=== PATIENT | male | born 1945 | race Hispanic/Latino ===

== ENCOUNTER 2020-12-03 09:55 | Inpatient (IN) | payer MEDICARE ==
[2020-12-03 14:17] LABS: ALT (SGPT) 10 U/L (8-55); AST (SGOT) 14 U/L (5-34); Albumin 4.1 g/dL (3.4-4.8); Alkaline Phosphatase 59 U/L (40-110); Anion Gap 14 mmol/L (10-20); BUN (Urea Nitrogen) 60 mg/dL (8.4-25.7); Bilirubin, Total 0.3 mg/dL (0.2-1.2); Calc. Creatinine Clearance 0 mL/min (70-130); Calcium 9.2 mg/dL (7.8-10.44); Carbon Dioxide 24 mmol/L (23-31); Chloride 106 mmol/L (98-107); Globulin 3.4 g/dL (2.4-3.5); Glucose 139 mg/dL (83-110); Potassium 4.3 mmol/L (3.5-5.1); Protein, Total 7.5 g/dL (5.8-8.1); Sodium 140 mmol/L (136-145)
[2020-12-03 15:34] LABS: Hemoglobin 10.1 g/dL (14.0-18.0); Mean Corpuscular Volume 93.6 fL (78.0-98.0); Red Blood Cell (RBC) Count 3.15 mill/uL (4.70-6.10); White Blood Cell (WBC) Count 6.2 thou/uL (4.8-10.8)
[2020-12-03 15:35] LABS: #Basophils 0.1 thou/uL (0.0-0.2); #Eosinphils 0.5 thou/uL (0.0-0.7); #Lymphocytes 1.8 thou/uL (1.20-3.40); #Monocytes 0.5 thou/uL (0.11-0.59); #Neutrophils 3.4 thou/uL (1.40-6.50); %Basophils 1.2 % (0.0-1.0); %Lymphocytes 28.6 % (21.0-51.0); %Monocytes 7.4 % (0.0-10.0); %Neutrophils 54.9 % (42.0-75.0); Mean Corpuscular HGB CONC 34.2 g/dL (32.0-36.0); Mean Platelet Volume 8.1 fL (7.4-10.4); Platelet Count 167 thou/uL (130-400); RBC Distribution Width 11.4 % (11.5-14.5)
[2020-12-03] MEDS ORDERED: CEFAZOLIN 2 GM in Premix Bag 1 BAG IVPB SCH (16:15)
[2020-12-03] MEDS ORDERED: Acetaminophen 325 MG TAB PO PRN (18:51)
[2020-12-03 18:53] LABS: #Basophils 0.1 thou/uL (0.0-0.2); #Eosinphils 0.5 thou/uL (0.0-0.7); #Lymphocytes 1.5 thou/uL (1.20-3.40); #Monocytes 0.4 thou/uL (0.11-0.59); #Neutrophils 3.1 thou/uL (1.40-6.50); %Basophils 1.3 % (0.0-1.0); %Eosinophils 9.5 % (0.0-10.0); %Lymphocytes 26.5 % (21.0-51.0); %Monocytes 7.1 % (0.0-10.0); %Neutrophils 55.7 % (42.0-75.0); Hemoglobin 10.3 g/dL (14.0-18.0); Mean Corpuscular HGB CONC 33.7 g/dL (32.0-36.0); Mean Corpuscular Hemoglobin 31.4 pg (27.0-31.0); Mean Corpuscular Volume 93.3 fL (78.0-98.0); Mean Platelet Volume 8.2 fL (7.4-10.4); Platelet Count 162 thou/uL (130-400); RBC Distribution Width 11.5 % (11.5-14.5); Red Blood Cell (RBC) Count 3.27 mill/uL (4.70-6.10); White Blood Cell (WBC) Count 5.6 thou/uL (4.8-10.8)
[2020-12-03] MEDS ORDERED: Dextrose 50% Abboject 50 ML SYRINGE IVP PRN (19:00)
[2020-12-03] MEDS ORDERED: Dextrose 5% in Water 1,000 ML IV PRN (19:00)
[2020-12-03 19:07] LABS: Hemoglobin A1c 6.1 % (4.0-6.0)
[2020-12-03 19:09] LABS: ALT (SGPT) 9 U/L (8-55); AST (SGOT) 14 U/L (5-34); Albumin 4.1 g/dL (3.4-4.8); Alkaline Phosphatase 52 U/L (40-110); Anion Gap 18 mmol/L (10-20); BUN (Urea Nitrogen) 57 mg/dL (8.4-25.7); Bilirubin, Total 0.4 mg/dL (0.2-1.2); Calc. Creatinine Clearance 0 mL/min (70-130); Carbon Dioxide 22 mmol/L (23-31); Chloride 105 mmol/L (98-107); Globulin 3.5 g/dL (2.4-3.5); Glucose 229 mg/dL (83-110); Potassium 4.5 mmol/L (3.5-5.1); Protein, Total 7.6 g/dL (5.8-8.1); Sodium 140 mmol/L (136-145)
[2020-12-03] MEDS ORDERED: Tuberculin PPD 0.1 ML VIAL I-DERMAL SCH ×2 (19:15→21:00)
[2020-12-03 19:17] VITALS: BMI 26.4
[2020-12-03 19:48] LABS: SARS-CoV-2 NAA Rapid Test Not Detected (NotDetected)
[2020-12-04] MEDS ORDERED: Carvedilol 25 MG TAB PO SCH ×2 (06:30→09:00)
[2020-12-04 07:07] LABS: HBSAB Concentration Less than 8.00 mIU/mL; HBSAg Index 0.21 S/CO (0-0.99); Hep B Core Total Ab Non-Reactive (NonReactive); Hep B Core Total Index 0.11 S/CO (0-0.79); Hep B Surf AB Non-Reactive (NonReactive); Hep B Surf Ag Non-Reactive S/CO (NonReactive); Hep C IgG Ab Non-Reactive (NonReactive); Hep C Index 0.08 S/CO (0-0.79)
[2020-12-04] MEDS: Polyethylene Glycol 3350 17 GM Packet PO SCH (07:54)
[2020-12-04] MEDS: Aspirin 325 MG TAB PO SCH (07:54)
[2020-12-04] MEDS ORDERED: Heparin 5,000 UNITS/ML VIAL ONE (08:31)
[2020-12-04] MEDS ORDERED: Protamine Sulfate 50 MG/5 ML VIAL ONE (08:31)
[2020-12-04] MEDS ORDERED: Sodium Chloride 0.9% 30 ML ONE (08:31)
[2020-12-04] MEDS ORDERED: Heparin 10,000 UNITS/ 10 ML VIAL ONE ×2 (08:31→10:18)
[2020-12-04] MEDS ORDERED: Bupivacaine 0.25% HCL 30 ML VIAL ONE (08:31)
[2020-12-04] MEDS ORDERED: Lidocaine 1% w/Epinephrine 1:100K 20 ML VIAL ONE (08:31)
[2020-12-04] MEDS ORDERED: Ketamine 50 MG/ML (10ML VIAL) ONE (09:14)
[2020-12-04] MEDS ORDERED: Bupivacaine HCl 0.5%/Epinephrine 1:200,000/PF 30 ml Vial ONE (09:19)
[2020-12-04] MEDS ORDERED: PROPOFOL 200 MG/20 ML VIAL ONE (09:24)
[2020-12-04] MEDS: traMADol HCl 50 MG TAB PO PRN (14:53)
[2020-12-04] MEDS: Carvedilol 25 MG TAB PO SCH (20:16)
[2020-12-05 05:55] LABS: Anion Gap 14 mmol/L (10-20); BUN (Urea Nitrogen) 41 mg/dL (8.4-25.7); Calc. Creatinine Clearance 21 mL/min (70-130); Calcium 8.5 mg/dL (7.8-10.44); Carbon Dioxide 28 mmol/L (23-31); Chloride 101 mmol/L (98-107); Glucose 145 mg/dL (83-110); Sodium 139 mmol/L (136-145)
[2020-12-05] MEDS ORDERED: READ PPD TEST SITE PO SCH (09:00)
[2020-12-05] MEDS ORDERED: Ondansetron ODT 4 MG TAB PO PRN (09:02)
[2020-12-05] MEDS ORDERED: Ondansetron PF 4 MG/2 ML Vial IVP PRN (09:02)
[2020-12-05] MEDS: Polyethylene Glycol 3350 17 GM Packet PO SCH (12:42)
[2020-12-05] MEDS: Aspirin 325 MG TAB PO SCH (12:42)
[2020-12-05] MEDS: Carvedilol 25 MG TAB PO SCH ×2 (12:42→21:03)
[2020-12-05] MEDS ORDERED: Heparin 10,000 UNITS/ 10 ML VIAL ONE (14:52)
[2020-12-05] MEDS ORDERED: Promethazine HCl 12.5 MG in Sodium Chloride 0.9% 50 ML IVPB PRN (16:46)
[2020-12-05] MEDS: HumaLOG 300 UNITS/3 ML VIAL SC PRN (18:38)
[2020-12-05] MEDS: hydrALAZINE 25 MG TAB PO SCH (21:00)
[2020-12-05] MEDS: Mirtazapine 15 MG TAB PO SCH (21:00)
[2020-12-05] MEDS: Fluticasone Propionate Nasal Spray 16 gm Bottle NASAL SCH (21:02)
[2020-12-05] MEDS: Lantus 1000 UNITS/10 ML VIAL SC SCH (21:04)
[2020-12-06] MEDS: traMADol HCl 50 MG TAB PO PRN (00:23)
[2020-12-06 05:01] LABS: Anion Gap 11 mmol/L (10-20); BUN (Urea Nitrogen) 29 mg/dL (8.4-25.7); Calc. Creatinine Clearance 20 mL/min (70-130); Calcium 8.3 mg/dL (7.8-10.44); Carbon Dioxide 30 mmol/L (23-31); Chloride 100 mmol/L (98-107); Glucose 120 mg/dL (83-110); Potassium 3.8 mmol/L (3.5-5.1); Sodium 137 mmol/L (136-145)
[2020-12-06] MEDS: Amlodipine 10 MG TAB PO SCH (08:36)
[2020-12-06] MEDS: Polyethylene Glycol 3350 17 GM Packet PO SCH (08:36)
[2020-12-06] MEDS: Carvedilol 25 MG TAB PO SCH ×2 (08:36→20:30)
[2020-12-06] MEDS: Fluticasone Propionate Nasal Spray 16 gm Bottle NASAL SCH ×2 (08:37→20:28)
[2020-12-06] MEDS: hydrALAZINE 25 MG TAB PO SCH ×3 (08:37→20:30)
[2020-12-06] MEDS: Aspirin 325 MG TAB PO SCH (08:37)
[2020-12-06] MEDS: Lantus 1000 UNITS/10 ML VIAL SC SCH (20:29)
[2020-12-06] MEDS: Mirtazapine 15 MG TAB PO SCH (20:30)
[2020-12-07 06:33] LABS: Anion Gap 13 mmol/L (10-20); Calc. Creatinine Clearance 17 mL/min (70-130); Calcium 8.2 mg/dL (7.8-10.44); Carbon Dioxide 29 mmol/L (23-31); Chloride 101 mmol/L (98-107); Glucose 113 mg/dL (83-110); Potassium 3.8 mmol/L (3.5-5.1); Sodium 139 mmol/L (136-145)
[2020-12-07 07:30] LABS: BUN (Urea Nitrogen) 40 mg/dL (8.4-25.7)
[2020-12-07] MEDS: Amlodipine 10 MG TAB PO SCH ×2 (08:14→13:17)
[2020-12-07] MEDS: Aspirin 325 MG TAB PO SCH ×2 (08:15→13:16)
[2020-12-07] MEDS: Fluticasone Propionate Nasal Spray 16 gm Bottle NASAL SCH ×2 (08:16→20:50)
[2020-12-07] MEDS: Carvedilol 25 MG TAB PO SCH ×2 (08:16→20:50)
[2020-12-07] MEDS: hydrALAZINE 25 MG TAB PO SCH ×3 (09:00→20:50)
[2020-12-07] MEDS: Polyethylene Glycol 3350 17 GM Packet PO SCH (13:17)
[2020-12-07] MEDS ORDERED: Heparin 10,000 UNITS/ 10 ML VIAL ONE (14:46)
[2020-12-07] MEDS: HumaLOG 300 UNITS/3 ML VIAL SC PRN (16:42)
[2020-12-07] MEDS: Lantus 1000 UNITS/10 ML VIAL SC SCH (20:51)
[2020-12-07] MEDS: Mirtazapine 15 MG TAB PO SCH (20:51)
[2020-12-08] MEDS: Amlodipine 10 MG TAB PO SCH (08:21)
[2020-12-08] MEDS: Polyethylene Glycol 3350 17 GM Packet PO SCH (08:21)
[2020-12-08] MEDS: hydrALAZINE 25 MG TAB PO SCH ×3 (08:21→20:08)
[2020-12-08] MEDS: Aspirin 325 MG TAB PO SCH (08:21)
[2020-12-08] MEDS: Carvedilol 25 MG TAB PO SCH ×2 (08:22→20:08)
[2020-12-08] MEDS: Fluticasone Propionate Nasal Spray 16 gm Bottle NASAL SCH ×2 (08:22→20:08)
[2020-12-08] MEDS: HumaLOG 300 UNITS/3 ML VIAL SC PRN (12:37)
[2020-12-08] MEDS: Lantus 1000 UNITS/10 ML VIAL SC SCH (20:09)
[2020-12-08] MEDS: Mirtazapine 15 MG TAB PO SCH (20:09)
[2020-12-09 06:58] VITALS: BP 135/64; TEMP 99.3
[2020-12-09] MEDS: Polyethylene Glycol 3350 17 GM Packet PO SCH (08:44)
[2020-12-09] MEDS: Carvedilol 25 MG TAB PO SCH (08:45)
[2020-12-09] MEDS: Aspirin 325 MG TAB PO SCH (08:45)
[2020-12-09] MEDS: Amlodipine 10 MG TAB PO SCH (08:45)
[2020-12-09] MEDS: hydrALAZINE 25 MG TAB PO SCH ×2 (08:45→14:50)
[2020-12-09] MEDS: Fluticasone Propionate Nasal Spray 16 gm Bottle NASAL SCH (08:46)
== END 2020-12-09 16:37 | DRG 673 ==
LOC: ERS 09:55 → T4-A 15:06 → OBSVTOIN 12-04 14:49
PROVIDERS: ADMIT Specialist; ATTEND Internal Medicine
PROC: 5A1D70Z Performance of Urinary Filtration, Intermittent, Less than 6 Hours Per Day (ICD-10-PCS; principal; 2020-12-04)
PROC: 031C0ZF Bypass Left Radial Artery to Lower Arm Vein, Open Approach (ICD-10-PCS; 2020-12-04)
PROC: 0JH60XZ Insertion of Tunneled Vascular Access Device into Chest Subcutaneous Tissue and Fascia, Open Approach (ICD-10-PCS; 2020-12-04)
PROC: 02HV33Z Insertion of Infusion Device into Superior Vena Cava, Percutaneous Approach (ICD-10-PCS; 2020-12-04)
PROC: B518ZZA Fluoroscopy of Superior Vena Cava, Guidance (ICD-10-PCS; 2020-12-04)
PROC: 02HV33Z Insertion of Infusion Device into Superior Vena Cava, Percutaneous Approach (ICD-10-PCS; 2020-12-04)
PROC: B548ZZA Ultrasonography of Superior Vena Cava, Guidance (ICD-10-PCS; 2020-12-04)
DX: I12.0 Hypertensive chronic kidney disease with stage 5 chronic kidney disease or end stage renal disease (principal); N18.6 End stage renal disease; E11.22 Type 2 diabetes mellitus with diabetic chronic kidney disease; Z20.822 Contact with and (suspected) exposure to COVID-19; F32.9 Major depressive disorder, single episode, unspecified; E78.5 Hyperlipidemia, unspecified; D63.1 Anemia in chronic kidney disease; R60.9 Edema, unspecified; Z28.21 Immunization not carried out because of patient refusal; Z86.73 Personal history of transient ischemic attack (TIA), and cerebral infarction without residual deficits; Z79.899 Other long term (current) drug therapy; Z79.4 Long term (current) use of insulin; Z79.82 Long term (current) use of aspirin; Z79.51 Long term (current) use of inhaled steroids
CPT/HCPCS: 36415; 36416; 71045; 80048; 80053; 83036; 85025; 86580; 86704; 86706; 86803; 87340; 90935; 93005; 93970; C1751; C1752; G0257; G0378; J0690; J1644; J1815; J2405; J2550; J2704; J2720; Q0162; S0020; U0002